=== PATIENT | male | born 1960 | race African-American/Black ===

== ENCOUNTER 2025-04-13 09:22 | Inpatient (IN) | payer MEDICAID, MEDICARE ==
[~2025-04-13] VITALS: Ht 175.3 cm; Wt 84.0 kg
[2025-04-13 09:25] VITALS: O2SAT 99
[2025-04-13 10:51] LABS: HEMATOCRIT. 22.8 % (42.0-52.0); HEMOGLOBIN. 7.4 g/dL (14.0-18.0); MEAN CORPUSCULAR HEMOGLOBIN 29.8 pg (28.0-32.0); MEAN CORPUSCULAR HGB CONC 32.4 g/dL (31.0-37.0); MEAN CORPUSCULAR VOLUME 91.9 fL (80.0-94.0); MEAN PLATELET VOLUME 7.4 fl (7.4-10.4); PLATELET 160 x1000/uL (130-400); RED BLOOD CELL COUNT 2.48 mill/uL (4.7-6.1); WHITE BLOOD COUNT 8.4 x1000/uL (4.5-11.0)
[2025-04-13 10:54] LABS: DIFFERENTIAL COMMENT 1
[2025-04-13 10:59] LABS: CHLORIDE 90 mEq/L (98-107); POTASSIUM 3.8 mEq/L (3.5-5.1); SODIUM 133 mEq/L (136-145)
[2025-04-13 11:00] LABS: CALCIUM 6.3 mg/dL (8.7-10.4); CARBON DIOXIDE 26 mEq/L (21-32)
[2025-04-13 11:05] LABS: GLUCOSE 127 mg/dL (70-105); UREA NITROGEN BLOOD 52 mg/dL (9-23)
[2025-04-13 11:06] LABS: ETHANOL BLOOD < 10 mg/dL (<10); TROPONIN I HIGH SENSITIVITY 19 ng/L (3.0-53)
[2025-04-13 11:25] LABS: ANISOCYTOSIS 3+; PLATELET ESTIMATE NORMAL
[2025-04-13] MEDS ORDERED: LORAZEPAM 2MG/ML INJ IV ONE ×2 (11:30→11:45)
[2025-04-13 11:34] LABS: CREATININE 6.5 mg/dL (0.6-1.3)
[2025-04-13] MEDS: LORAZEPAM 2MG/ML UD SYRINGE IV NR ×2 (11:38→11:45)
[2025-04-13] MEDS: CALCIUM GLUCONATE 1GM PREMIX 50 ML IV NR (12:09)
[2025-04-13] MEDS ORDERED: ONDANSETRON HCL 4MG/2ML INJ IV PRN (13:15)
[2025-04-13] MEDS ORDERED: IPRATROPIUM/ALBUTEROL 0.5-3(2.5)MG/3ML NEB HHN PRN (13:15)
[2025-04-13] MEDS ORDERED: CLONIDINE 0.1MG TABLET PO PRN (13:15)
[2025-04-13] MEDS ORDERED: DEXTROSE 50% WATER 50ML SYRINGE IV PRN (13:15)
[2025-04-13] MEDS ORDERED: LORAZEPAM 2MG/ML UD SYRINGE IV PRN (13:15)
[2025-04-13] MEDS ORDERED: DOCUSATE SODIUM 100MG CAPSULE PO PRN (13:15)
[2025-04-13] MEDS ORDERED: ACETAMINOPHEN 325MG TABLET PO PRN ×2 (13:15)
[2025-04-13 14:45] LABS: THYROID STIMULATING HORMONE 2.41 uIU/mL (0.55-4.78)
[2025-04-13 15:45] VITALS: BP 117/81; PULSE 99; RESP 19; TEMP 36.2; O2SAT 99
[2025-04-13 17:25] VITALS: BP 117/81; PULSE 99; RESP 20; TEMP 36.4
[2025-04-13] MEDS: BLOOD SUGAR DIAGNOSTIC STRIP TEST SCH (17:40)
[2025-04-13] MEDS: INSULIN LISPRO 100 UNITS/ML SUBCUT SCH (18:10)
[2025-04-13 19:50] LABS: HEPATITIS B SURFACE ANTIGEN NEGATIVE (Negative)
[2025-04-13 20:11] LABS: HEPATITIS C AB NON REACTIVE (Neg) (Negative)
[2025-04-13] MEDS: LEVETIRACETAM 500MG PREMIX 100 ML IV SCH (20:42)
[2025-04-14 04:30] VITALS: BP 117/84; PULSE 95
[2025-04-14 05:00] VITALS: BP 115/84; PULSE 99
[2025-04-14 05:30] VITALS: BP 110/83; PULSE 98
[2025-04-14 06:16] LABS: CHLORIDE 98 mEq/L (98-107); POTASSIUM 3.6 mEq/L (3.5-5.1); SODIUM 137 mEq/L (136-145)
[2025-04-14 06:17] LABS: CARBON DIOXIDE 25 mEq/L (21-32)
[2025-04-14 06:22] LABS: GLUCOSE 98 mg/dL (70-105)
[2025-04-14 06:23] LABS: UREA NITROGEN BLOOD 59 mg/dL (9-23)
[2025-04-14 06:24] LABS: ALANINE AMINOTRANSFERASE < 7 IU/L (10-49); ALBUMIN 4.2 g/dL (3.2-4.8); ASPARTATE AMINOTRANSFERASE 15 IU/L (<34)
[2025-04-14 06:25] LABS: BILIRUBIN TOTAL 0.2 mg/dL (0.1-1.0); PROTEIN TOTAL 7.3 g/dL (6.0-8.3)
[2025-04-14 06:50] LABS: HEMATOCRIT. 23.4 % (42.0-52.0); HEMOGLOBIN. 7.7 g/dL (14.0-18.0); MEAN CORPUSCULAR HEMOGLOBIN 29.6 pg (28.0-32.0); MEAN CORPUSCULAR HGB CONC 32.8 g/dL (31.0-37.0); MEAN CORPUSCULAR VOLUME 90.4 fL (80.0-94.0); MEAN PLATELET VOLUME 7.7 fl (7.4-10.4); PLATELET 159 x1000/uL (130-400); RED BLOOD CELL COUNT 2.59 mill/uL (4.7-6.1); RED CELL DISTRIBUTION WIDTH 23.2 % (11.6-14.6); WHITE BLOOD COUNT 7.3 x1000/uL (4.5-11.0)
[2025-04-14 06:55] LABS: DIFFERENTIAL COMMENT 1
[2025-04-14 08:10] LABS: HEPATITIS B SURFACE ANTIGEN NEGATIVE (Negative)
[2025-04-14 08:30] LABS: HEPATITIS A AB IGM NEGATIVE (Negative)
[2025-04-14 08:31] LABS: HEPATITIS B CORE AB IGM NEGATIVE (Negative); HEPATITIS C AB NON REACTIVE (Neg) (Negative)
[2025-04-14 13:11] LABS: ANISOCYTOSIS 3+; NUCLEATED RED BLOOD CELLS 3 /100 WBC; PLATELET ESTIMATE NORMAL
== END 2025-04-14 08:15 | disposition left against medical advice (07) | DRG 100 ==
LOC: ER 09:22 → EDBEDREQ 11:36 → EDBEDREQTM 11:36 → ENRESERV 11:59 → 7WST 12:57
PROVIDERS: ADMIT Internal Medicine; ATTEND Internal Medicine
PROC: 5A1D70Z Performance of Urinary Filtration, Intermittent, Less than 6 Hours Per Day (ICD-10-PCS; principal; 2025-04-13)
DX: G40.909 Epilepsy, unspecified, not intractable, without status epilepticus (principal); N18.6 End stage renal disease; I12.0 Hypertensive chronic kidney disease with stage 5 chronic kidney disease or end stage renal disease; E11.22 Type 2 diabetes mellitus with diabetic chronic kidney disease; D72.821 Monocytosis (symptomatic); D72.825 Bandemia; D64.9 Anemia, unspecified; E78.00 Pure hypercholesterolemia, unspecified; Z79.84 Long term (current) use of oral hypoglycemic drugs; Z82.49 Family history of ischemic heart disease and other diseases of the circulatory system; Z83.3 Family history of diabetes mellitus; Z99.2 Dependence on renal dialysis; Z88.0 Allergy status to penicillin; Z90.49 Acquired absence of other specified parts of digestive tract; I25.2 Old myocardial infarction; Z53.29 Procedure and treatment not carried out because of patient's decision for other reasons; Z91.148 Patient's other noncompliance with medication regimen for other reason
CPT/HCPCS: 36415; 80048; 80053; 80061; 80320; 82962; 83036; 83880; 84443; 84484; 85025; 86705; 86709; 87340; 90935; 93005; 96365; 96375; 99291; J0610; J1953; J2060; G0480